=== PATIENT | female | born 1975 | race Caucasian/White ===

== ENCOUNTER 2020-06-07 15:14 | Emergency (ER) | payer OTHER ==
[~2020-06-07] VITALS: Ht 160 cm; Wt 73.9 kg
[2020-06-07] MEDS ORDERED: LABETALOL HCL200 MG PO (15:42)
[2020-06-07] MEDS ORDERED: ATORVASTATIN CA20 MG PO (15:42)
== END 2020-06-07 21:54 | disposition home or self-care (01) ==
LOC: ER 15:14
DX: Q61.3 Polycystic kidney, unspecified (principal); R31.0 Gross hematuria; R10.12 Left upper quadrant pain